=== PATIENT | male | born 1975 | race Two or more races ===

== ENCOUNTER 2018-11-09 07:47 | Emergency (ER) | payer MEDICAID ==
[~2018-11-09] VITALS: Ht 170.2 cm; Wt 58.1 kg
[2018-11-09] MEDS ORDERED: QUETIAPINE FUMA50 MG ORAL (08:02)
[2018-11-09] MEDS ORDERED: SERTRALINE HCL50 MG ORAL (08:02)
--- NOTE | 2018-11-09 08:05 | NUR ---
ED Nurse Note: Pt came in from home due to "unable to sleep well x 3 weeks", pt broke up with his [facility] girlfriend for 10 years which caused symtom. Pt went to mental health clinic and was prescribed Zoloft and Seroquel, reported he has been feeling "loopy". AOx4, VSS darien. Will cont to monitor.
[2018-11-09 08:18] VITALS: BP 137/79
--- NOTE | 2018-11-09 08:23 | Emergency Room Report ---
History of Present Illness General Chief Complaint: General Complaint Source: Patient Present Illness HPI 43-year-old male history of depression, presents with insomnia x1 month, poor appetite, patient recently prescribed Seroquel, he complains of feeling loopy throughout the day, he denies any fevers chills chest pain shortness of breath, abdominal pain he states that loopiness is aggravated by the Seroquel, alleviated by not taking it, he states the Seroquel has helped him sleep better at night, patient wants to know what is going on. Allergies: Coded Allergies: No Known Allergies (Unverified , 11/09/18) Patient History Past Medical History: see triage record Reviewed Nursing Documentation: PMH: Agreed; PSxH: Agreed Nursing Documentation-PMH Past Medical History: No Stated History Review of Systems All Other Systems: negative except mentioned in HPI Physical Exam Vital Signs Date Time Temp Pulse Resp B/P (MAP) Pulse Ox O2 Delivery O2 Flow Rate FiO2 11/09/18 07:56 98.1 86 19 138/90 (106) 97 Room Air Sp02 EP Interpretation: reviewed, normal General Appearance: well appearing, no apparent distress, alert Head: normocephalic, atraumatic Eyes: bilateral eye PERRL, bilateral eye EOMI ENT: uvula midline, moist mucus membranes Neck: supple, thyroid normal, supple/symm/no masses Respiratory: lungs clear, no respiratory distress, no retraction, no accessory muscle use Cardiovascular #1: normal peripheral pulses, regular rate, rhythm, no edema, no gallop, no murmur Gastrointestinal: non tender, soft, no guarding, no rebound Musculoskeletal: normal inspection Neurologic: alert, oriented x3 Psychiatric: mood/affect normal Skin: no rash, warm/dry Medical Decision Making Diagnostic Impression: Primary Impression: Medication side effect Additional Impression: Insomnia disorder ER Course Patient presents with most likely a medication side effect, patient counseled about Seroquel, patient also counseled on proper sleep hygiene, patient counseled to follow-up with her primary care doctor, return precautions discussed. Patient states he will follow-up with his PCP, on the differential includes insomnia, depression, unspecified mental illness Last Vital Signs Date Time Temp Pulse Resp B/P (MAP) Pulse Ox O2 Delivery O2 Flow Rate FiO2 11/09/18 08:18 98.1 81 20 137/79 97 Room Air Disposition: HOME, SELF-CARE Condition: Stable Referrals: [facility] Patient Instructions: Diphenhydramine capsules or tablets [Insomnia], Insomnia Additional Instructions: The patient was provided with discharge instructions, notified to follow-up with a primary care doctor and or specialist in the next 24-48 hours, and to return to the ED if they have worsening of their symptoms. Please note that this report is being documented using [employer] technology. This can lead to erroneous entry secondary to incorrect interpretation by the dictating instrument. Satish Hearn M.D. Nov 09, 2018 08:23
[2018-11-09 08:25] VITALS: BP 137/79
--- NOTE | 2018-11-09 08:25 | NUR ---
ER DISCHARGE NOTE: Patient is cleared to be discharged per ERMD, pt is aox4, on room air, with stable vital signs. pt was given dc and prescription instructions, pt was able to verbalize understanding, pt id band removed. pt is able to ambulate with steady gait. pt took all belongings.
== END 2018-11-09 08:25 | disposition home or self-care (01) ==
LOC: EDSEX 07:47 → EMR 07:55
DX: G47.00 Insomnia, unspecified (principal); F32.9 Major depressive disorder, single episode, unspecified
CPT/HCPCS: 99281